=== PATIENT | female | born 1960 | race Two or more races ===

== ENCOUNTER 2022-01-30 04:47 | Emergency (ER) | payer OTHER ==
[~2022-01-30] VITALS: Ht 152.4 cm; Wt 102.1 kg
[2022-01-30] MEDS ORDERED: LEVOTHYROXINE25 MCG (04:57)
[2022-01-30] MEDS ORDERED: ATACAND4 MG (04:58)
[2022-01-30] MEDS ORDERED: TENORMIN25 MG (04:58)
[2022-01-31] MEDS ORDERED: HYDROCHLOROTHIA25 MG (02:59)
== END 2022-01-30 14:08 | disposition home or self-care (01) ==
LOC: ER 04:47
DX: R10.84 Generalized abdominal pain (principal); K80.20 Calculus of gallbladder without cholecystitis without obstruction; K42.9 Umbilical hernia without obstruction or gangrene; I10 Essential (primary) hypertension

== ENCOUNTER 2022-01-31 02:45 | Emergency (ER) | payer OTHER ==
[~2022-01-31] VITALS: Ht 165.1 cm; Wt 99.8 kg
[~2022-01-31 02:45] MED LIST: ATACAND4 MG; LEVOTHYROXINE25 MCG; TENORMIN25 MG
[2022-01-31] MEDS ORDERED: HYDROCHLOROTHIA25 MG (02:59)
== END 2022-01-31 11:05 | disposition home or self-care (01) ==
LOC: ER 02:45
DX: K80.50 Calculus of bile duct without cholangitis or cholecystitis without obstruction (principal)

== ENCOUNTER 2022-01-31 19:34 | Emergency (ER) | payer OTHER ==
[~2022-01-31] VITALS: Ht 165.1 cm; Wt 99.8 kg
[~2022-01-31 19:34] MED LIST changes: +HYDROCHLOROTHIA25 MG
== END 2022-02-01 14:18 | disposition home or self-care (01) ==
LOC: ER 19:34
DX: K80.50 Calculus of bile duct without cholangitis or cholecystitis without obstruction (principal)

== ENCOUNTER 2022-02-06 13:39 | Outpatient (CLI) | payer OTHER | END 2022-02-06 14:07 | disposition home or self-care (01) | LOC: MRI 13:39 | PROVIDERS: ATTEND Surgery | DX: K80.80 Other cholelithiasis without obstruction (principal) | CPT/HCPCS: 74181 ==

== ENCOUNTER 2022-02-09 13:01 | Outpatient (CLI) | payer OTHER | END 2022-02-09 13:02 | disposition home or self-care (01) | LOC: NUCLEAR 13:01 | PROVIDERS: ATTEND Surgery | DX: K80.50 Calculus of bile duct without cholangitis or cholecystitis without obstruction (principal) ==

== ENCOUNTER 2022-07-14 03:33 | Emergency (ER) | payer OTHER ==
[~2022-07-14] VITALS: Ht 165.1 cm; Wt 102.1 kg
[2022-07-14] MEDS ORDERED: CANDESARTAN CILE4 MG (04:01)
[2022-07-14] MEDS ORDERED: LEVALBUTER0.63 MG/3 IH (07:23)
[2022-07-14] MEDS ORDERED: ACETAMINOPHEN650 M2 PO (07:23)
[2022-07-14] MEDS ORDERED: BUDESONIDE0.5 MG/21 IH (07:23)
[2022-07-14] MEDS ORDERED: AZITHROMYCIN500 MG PO (07:23)
== END 2022-07-14 08:52 | disposition home or self-care (01) ==
LOC: ER 03:33
DX: J98.01 Acute bronchospasm (principal); R50.9 Fever, unspecified; R06.02 Shortness of breath; Z20.828 Contact with and (suspected) exposure to other viral communicable diseases